=== PATIENT | female | born 1995 | race Caucasian/White ===

== ENCOUNTER 2019-07-14 13:00 | Emergency (ER) | payer BC ==
[2019-07-14] MEDS ORDERED: Cyclobenzaprine 10 MG Tab ONE (13:30)
--- NOTE | 2019-07-14 14:57 | CR ---
Date of Service: 07/14/19 Clinical Data: chest pain PA AND LATERAL CHEST: No priors. The heart size is normal. The lungs are clear. No pneumothorax. No pleural effusions. No evidence of acute intrathoracic disease. [id number] [facility]
--- NOTE | 2019-07-14 18:44 | ER ---
REASON FOR EMERGENCY ROOM VISIT: Chest pain. HISTORY: This 23-year-old woman comes into the emergency room with chest discomfort. She states that she has had an intermittent dull aching pain in the center of her chest over the past 2 days. It seems to come on lasting few seconds and then resolves on its own and has been that way until today when she began to experience some sharp stabbing discomfort in her central chest area and off to the left side. It is not pleuritic in nature and is not affected with by deep breathing. She denies any diaphoresis or radiation down her arm or penetration through to her back. 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 She denies any trauma to the area, but does admit that she had several drinks last evening, but was never intoxicated. She does have a history of smoking. PAST MEDICAL HISTORY: Significant for; 1. Hospitalization for an infectious mono as a child/adolescent. 2. History of low back and hip pain. MEDICATIONS: None. ALLERGIES: NONE. REVIEW OF SYSTEMS: Pertinent positives and negatives as listed in the HPI. PHYSICAL EXAMINATION: GENERAL: She is an alert woman who appears somewhat anxious but is in no acute distress. VITAL SIGNS: Blood pressure 121/64, heart rate 75, respiratory rate 16, O2 sats 100% on room air. She is afebrile. HEENT: Head is normocephalic. Pupils equally round and reactive to light. No conjunctivitis or scleral icterus is noted. Oropharynx is normal. NECK: Supple. Nontender. No JVD. No adenopathy. CHEST: She does have significant tenderness to palpation over lower anterior sternum slightly off to the left side. Laterally, she has one area where she is significantly tender at approximately the level of the anterior axillary line over the lower chest wall. This is reproducible. She grimaces and winces whenever the air is palpated. She has good air exchange bilaterally on auscultation with no wheezes, rhonchi, or rales. CARDIAC: Regular rate without murmur or rub. ABDOMEN: Soft, obese. No hepatosplenomegaly. EXTREMITIES: Normal pulses. No edema. LABORATORY DATA: Her EKG shows normal sinus rhythm without acute changes. Her CBC is normal. Her CMP is normal. Her troponin 1 is normal at less than 0.017. A D-dimer was obtained and this was normal at less than 100. Chest. X-ray obtained, showed no active pulmonary disease. FURTHER EMERGENCY ROOM COURSE: Throughout the course of her evaluation, the pain tended to resolve spontaneously. Towards the end of her emergency room visit, she actually became quite comfortable and even was jocular at times. IMPRESSION: Chest wall pain. Doubt cardiac in origin. Doubt pulmonary embolus. PLAN: I recommended that she take ibuprofen 800 mg p.o. q.8 hours around the clock for at least 3 days with food. I also recommended warm moist heat to the area and to take things easy for the rest of the day tomorrow if she is feeling the same discomfort or certainly if it worsens, she should return for another evaluation. All questions were answered. She understands and agrees with this plan. YOVANY /[id number]
== END 2019-07-14 14:15 | disposition home or self-care (01) ==
LOC: LB.ED 13:00
DX: R07.89 Other chest pain (principal)
CPT/HCPCS: 36415; 71046; 80053; 84484; 85025; 85379; 93005; 99285; A9270

== ENCOUNTER 2019-11-03 09:37 | Emergency (ER) | payer BC ==
[~2019-11-03 09:37] MED LIST: Fluorescein 1 MG Ophth Strip EYELF ONE
[2019-11-03] MEDS ORDERED: Erythromycin Base 0.5% Ophth Oint 3.5 GM Tube ONE (10:20)
--- NOTE | 2019-11-03 10:35 | EDM.PDOC ---
ED HPI GENERAL MEDICAL PROBLEM - General Chief Complaint: General Stated Complaint: SWOLLEN LEFT EYE Time Seen by Provider: 11/03/19 10:15 Source of Information: Reports: Patient History Limitations: Reports: No Limitations - History of Present Illness INITIAL COMMENTS - FREE TEXT/NARRATIVE: This patient presents to the ED for evaluation of eye irritation. She states she woke with redness, swelling, and some pain. She is unaware of any irritation or trauma to her eye. She denies contact lens use, allergies, or other eye irritants. 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 She denies other concerns or complaints. - Related Data Allergies Allergy/AdvReac Type Severity Reaction Status Date / Time No Known Allergies Allergy Verified 07/14/19 13:22 Home Meds: Home Meds NK [No Known Home Meds] 07/14/19 [History] Past Medical History - Past Health History Medical/Surgical History: Denies Medical/Surgical History ED ROS GENERAL - Review of Systems Review Of Systems: See Below Constitutional: Reports: No Symptoms HEENT: Reports: Eye Discharge, Eye Pain, Other (left eye swelling) Respiratory: Reports: No Symptoms Cardiovascular: Reports: No Symptoms GI/Abdominal: Reports: No Symptoms Musculoskeletal: Reports: No Symptoms Skin: Reports: No Symptoms Neurological: Reports: No Symptoms ED EXAM, GENERAL - Physical Exam Exam: See Below Exam Limited By: No Limitations General Appearance: Alert, WD/WN, No Apparent Distress Eye Exam: Left Eye: Other (Eyelids swollen, erythematous. Eye erythematous, injected with scant amount crusted drainage on eyelashes.) Ears: Normal External Exam Nose: Normal Inspection Head: Atraumatic, Normocephalic Neck: Normal Inspection, Full Range of Motion Respiratory/Chest: No Respiratory Distress Back Exam: Normal Inspection Extremities: Normal Inspection Neurological: Alert, Oriented ED EYE PROCEDURE - Eye Procedure Alcaine Drops Administered: Yes Progress: Fluorescein eye exam, left eye, significant for increased dye uptake at the 2: 00 position. Erythromycin eye ointment instilled. Course - Re-Assessments/Exams Free Text/Narrative Re-Assessment/Exam: 11/03/19 10:37 This patient presents for evaluation of a tender eye as detailed above. A broad differential diagnosis was considered including bacterial conjunctivitis, viral conjunctivitis, foreign body, corneal abrasion, chemical vs allergic conjunctivitis, corneal ulcer, HSV, herpes zoster opthalmicus, endopthalmitis, orbital cellulitis, etc. Smith lamp exam with fluorescein shows uptake consistent with a corneal abrasion. Will start antibiotics and have close follow -up of physician (1-2 days). No red flag symptoms to suggest any of the other above worrisome etiologies. No dendrite or ulcer seen on exam. Tetanus up to date. Departure - Departure Time of Disposition: 10:35 Disposition: Refer to Observation Condition: Good Clinical Impression: Corneal abrasion, left - Discharge Information
[2019-11-03 10:46] VITALS: BP 123/73; PULSE 67
== END 2019-11-03 10:30 ==
LOC: LB.ED 09:37
DX: S05.02XA Injury of conjunctiva and corneal abrasion without foreign body, left eye, initial encounter (principal); X58.XXXA Exposure to other specified factors, initial encounter
CPT/HCPCS: 99284; A9270-GY

== ENCOUNTER 2022-10-02 18:24 | Emergency (ER) | payer BC ==
[2022-10-02] MEDS ORDERED: Tetracaine HCl/PF 0.5% 4 ML Bottle EYERT ONE (18:50)
[2022-10-02 18:55] VITALS: BP 131/90; PULSE 82
== END 2022-10-02 19:10 | disposition home or self-care (01) ==
LOC: LB.ED 18:24
DX: S05.01XA Injury of conjunctiva and corneal abrasion without foreign body, right eye, initial encounter (principal); Z91.040 Latex allergy status; W50.4XXA Accidental scratch by another person, initial encounter
CPT/HCPCS: 99283

== ENCOUNTER 2022-11-19 14:44 | Emergency (ER) | payer BC ==
[2022-11-19 15:02] VITALS: BP 140/88; PULSE 80
[2022-11-19] MEDS: Tetracaine HCl/PF 0.5% 4 ML Bottle EYERT ONE (15:13)
[2022-11-19] MEDS ORDERED: Ciprofloxacin 0.3% Ophth Soln 2.5 ML Bottle ONE (15:30)
== END 2022-11-19 15:45 | disposition home or self-care (01) ==
LOC: LB.ED 14:44
DX: S05.01XA Injury of conjunctiva and corneal abrasion without foreign body, right eye, initial encounter (principal); Z72.0 Tobacco use; Z91.040 Latex allergy status
CPT/HCPCS: 99283; A9270-GY

== ENCOUNTER 2023-06-14 07:21 | Emergency (ER) | payer BC ==
[2023-06-14] MEDS ORDERED: Ciprofloxacin 0.3% Ophth Soln 2.5 ML Bottle ONE (07:45)
[2023-06-14] MEDS ORDERED: Tetracaine HCl/PF 0.5% 4 ML Bottle EYERT ONE (07:46)
[2023-06-14 08:20] VITALS: BP 109/80; PULSE 71
== END 2023-06-14 07:53 | disposition home or self-care (01) ==
LOC: LB.ED 07:21
DX: S05.01XA Injury of conjunctiva and corneal abrasion without foreign body, right eye, initial encounter (principal); H10.021 Other mucopurulent conjunctivitis, right eye; I10 Essential (primary) hypertension; E66.9 Obesity, unspecified; F17.210 Nicotine dependence, cigarettes, uncomplicated; Z68.37 Body mass index [BMI] 37.0-37.9, adult; Z98.890 Other specified postprocedural states; Z91.040 Latex allergy status
CPT/HCPCS: 99282; 99283; A9270